=== PATIENT | male | born 1965 ===

== ENCOUNTER 2018-08-13 11:37 | Outpatient (REF) | payer MEDICAID, SELFPAY ==
[2018-08-13 22:08] LABS: Anion Gap 9.7 mmol/L (3-11); BUN 21 mg/dL (7-18); CO2 27.3 mmol/L (21.0-32.0); CREATININE 1.01 mg/dL (0.70-1.30); Calcium 9.7 mg/dL (8.5-10.1); Chloride 104 mmol/L (98-107); Glucose 102 mg/dL (70-100); Potassium 3.9 mmol/L (3.5-5.1); Sodium 141 mmol/L (136-145)
[2018-08-13 22:34] LABS: COMMENT (LAB VIEW ONLY) 143.27 mg/dL
== END 2018-08-13 11:57 ==
LOC: NCHCN 11:37
PROVIDERS: PCP Nurse Practitioner Family; Visit Provider Registered Nurse
DX: I10 Essential (primary) hypertension (principal); R80.9 Proteinuria, unspecified
CPT/HCPCS: 80048; 82043; 82570